=== PATIENT | female | born 1990 | race American Indian/Alaskan Native ===

== ENCOUNTER 2021-01-23 16:30 | Inpatient (IN) | payer OTHER ==
[2021-01-23] MEDS: Lactated Ringers 1,000 ML IV SCH ×3 (17:07→19:20)
[2021-01-23] MEDS ORDERED: Dexamethasone 4 MG/ML SDV IV ONE (17:45)
[2021-01-23] MEDS ORDERED: Acetaminophen 325 MG Tab PO PRN (17:45)
[2021-01-23] MEDS ORDERED: Tranexamic Acid 1,000 MG in Sodium Chloride 0.9% 100 ML IV PRN (17:45)
[2021-01-23] MEDS ORDERED: Morphine PF 1 MG/ML Amp ITHECAL ONE (17:45)
[2021-01-23] MEDS ORDERED: Acetaminophen/oxyCODONE 325-5 MG Tab PO PRN ×2 (17:45)
[2021-01-23] MEDS ORDERED: Docusate Sodium 100 MG Cap PO PRN (17:45)
[2021-01-23] MEDS ORDERED: Ondansetron 4 MG/2 ML SDV IV ONE (17:45)
[2021-01-23] MEDS ORDERED: Carboprost Tromethamine 250 MCG/1 ML Amp IM PRN (17:45)
[2021-01-23] MEDS ORDERED: Misoprostol 400 MCG (4 X 100 MCG TAB) RECTAL PRN (17:45)
[2021-01-23] MEDS ORDERED: Ondansetron 4 MG/2 ML SDV IVPUSH PRN (17:45)
[2021-01-23] MEDS ORDERED: Naloxone 2 MG/2 ML Syringe IVPUSH PRN (17:45)
[2021-01-23] MEDS ORDERED: ePHEDrine 50 MG/ML SDV IVPUSH PRN (17:45)
[2021-01-23] MEDS ORDERED: Lactated Ringers 1,000 ML IV ONE (17:45)
[2021-01-23] MEDS ORDERED: Ibuprofen 800 MG Tab PO PRN (17:45)
[2021-01-23] MEDS ORDERED: Methylergonovine 0.2 MG/1 ML Amp IM PRN (17:45)
[2021-01-23] MEDS ORDERED: Ketorolac 30 MG/ML SDV IVPUSH ONE (17:45)
[2021-01-23] MEDS ORDERED: Citric Acid/Sodium Citrate Solution 30 ML Cup PO ONE (17:51)
[2021-01-23] MEDS ORDERED: Oxytocin/Normal Saline 60 UNIT/1,000 ML BAG ONE (17:59)
[2021-01-23] MEDS ORDERED: Oxytocin/Normal Saline 30 UNITS/500 ML BAG IV SCH (18:00)
[2021-01-23] MEDS: ceFAZolin 2 GM in Premix Bag 1 BAG IV ONE (18:27)
--- NOTE | 2021-01-23 19:31 | HP ---
PATIENT IDENTIFICATION: Kaci Martinez is a 30-year-old, G3, P1-0-1-1, intrauterine at 38-6/7 weeks, confirmed with 21-2/7-week ultrasound with previous x1, requests repeat low transverse , presents with vaginal leaking and contractions. HISTORY OF PRESENT ILLNESS: The patient was scheduled to be delivered with repeat low transverse in [facility] tomorrow and is from the [facility], and when on her way there today at [facility] she was sitting in a vehicle and noticed a significant amount of vaginal leaking, described as clear in nature, continued to persist, nothing seems to make it better, at times it made her worse, and then started having contractions severe enough that she has been breathing through them currently. To put this in context, previous records were called for and reviewed. I do have 1 Maternal- Medicine record, does reveal that there was a pyelectasis on ultrasound and we are waiting for the records. She also had a history of intrauterine demise at approximately 16 weeks in September 2017 and had a history of abruption with her first and therefore is not a transfer candidate due to the above as well as having labor with spontaneous rupture of membranes. Records called for and reviewed as below and supplemented by patient's history. ALLERGIES: None. MEDICATIONS: vitamins. OBSTETRIC HISTORY: 1. 06/14/2014, delivered at 40 weeks with placental abruption delivering a male via primary low transverse . 2. September 2017, 16 weeks, had a demise. PAST MEDICAL HISTORY: Migraine and placental abruption. asthma with last use of albuterol over a year ago. PAST SURGICAL HISTORY: Notable for previous x1. Nasal sinus surgery procedure with nasal septum surgery. FAMILY HISTORY: Negative for any anesthesia, bleeding problems, or defects. No known problems with father of baby. Mother with asthma, diabetes type 2, hypertension. No known problems with brother or sister. SOCIAL HISTORY: The patient denies any alcohol, tobacco, or drug use. Presents with male partner. They are from the [facility] and lives in [place]. REVIEW OF SYSTEMS: Otherwise notable for as above. Denies any headaches, visual changes, or upper abdominal pain. OBJECTIVE: Vital Signs: Initial blood pressure 146/97, recheck 150/83; heart rate is between 66 and 80; temperature 99.1. Appearance: Female, appears stated age, acting appropriate. Nontoxic appearance. Breathing through contractions. Answering questions appropriately in between. Head: Atraumatic. EOMs intact. PERRLA. No scleral icterus. No sore throat. Mucous membranes are moist. Neck: No obvious tenderness. Lungs: Clear to auscultation bilaterally. No increased work of breathing. Heart: S1, S2. Regular rate and rhythm. Abdomen: Gravid. Dago's indeterminate. Nontender, nondistended. Bowel sounds positive. No organomegaly, pulsatile masses, or obvious hernias. No rebound, rigidity, or guarding with Pfannenstiel scar noted. Genitourinary: Normal external female genitalia. exam deferred as we have not received complete records from [place]. Extremities: No peripheral edema. Deep tendon reflexes 4/4 bilaterally and symmetric in lower extremities. Psychiatric: Mood and affect congruent. Judgment and insight intact. Skin: Without any cyanosis, clubbing, or jaundice. INVESTIGATIONS: White cell count 10.7, hemoglobin 11.2, platelets 163. Urinalysis notable for greater than 300 protein with a protein-creatinine ratio of 5573. Urine drug screen is negative and rapid COVID is pending. heart tones at current time of dictation in the 120s to 140s to 150s range, felt to be reactive and reassuring. Tocometer when reading contractions every couple of minutes, every 2 to 3 minutes on average. Just received an ultrasound report from [place] [facility] revealing at that time confirming EDC of 01/31/2021 with urinary tract dilation of left kidney measuring 6.0 mm with a UTD A1 diagnosis with anatomy appearing normal with limited visualization in the aortic arch with no sonographic markers for aneuploidy with normal amniotic fluid volume and normal anterior placenta. Pending are some labs to be obtained from [place]. Type and screen will be done here. The patient denies noting any infections during this or treatments for anything or further medications. ASSESSMENT: 1. Intrauterine at 38-6/7 weeks, confirmed with 21-2/7-week ultrasound. 2. Previous section x1. Requests repeat low transverse section. 3. Spontaneous rupture of membranes with labor and contractions. 4. History of abruption with her first section. 5. History of intrauterine demise at approximately 16 weeks in September 2017. 6. pyelectasis on ultrasound at 21-2/7 weeks measuring 6 mm with UTD A1, awaiting final and further records from [facility]. 7. Not a transfer candidate due to her history as above. 8. G3, P1-0-1-1. 9. Preeclampsia without severe features. PLAN: I did discuss with the patient and her male partner, Negrito. As she is not a transfer candidate, she is breathing through contractions, history of abruption and history of previous , requests repeat low transverse C- section. We will proceed to the OR as soon as crew is ready and available. I did discuss with them the risks, benefits, alternatives, and complications of C- section including but not limited to, infection; bleeding; damage to organs such as bowel, bladder, tubes, uterus, ovaries, and sometimes fetus; rarely needing a blood transfusion or further surgery, and rare maternal or . She understands, agrees, and wishes to proceed. Verbal and written consent were obtained. Questions were answered. In addition, I did discuss with the patient and her male partner the potential need to transfer baby to a higher level of care if need be, and we are awaiting current records. My overall suspicion is that its renal sinus separation/pyelectasis that is noted and will need a renal ultrasound or bladder ultrasound which certainly can be done here, and we will follow baby closely thereafter. The patient denies any headaches, visual changes, or upper abdominal pain. She has quite a bit of protein in her urine and elevated blood pressures. At this point in time, her pressure has come down to 125/73, but given her lab findings, we will proceed to the OR as soon as crew is ready and available. Her rapid COVID just returned negative. We are still waiting on her BUN, creatinine, uric acid, AST, and ALT at current time of dictation. I do not suspect this will change our current management at this point in time, and we will proceed to the OR as soon as crew is ready and available and update as records and the labs return. [facility] /[id number] [facility]
--- NOTE | 2021-01-23 19:45 | OBOUT ---
DATE: 01/23/2021 TIME: 1720 to 1733. REASON FOR NST: 1. Intrauterine at 38-6/7 weeks, confirmed with 21-2/7-week ultrasound. 2. Previous x1. Requests repeat low transverse . 3. Spontaneous rupture of membranes with labor. 4. pyelectasis on ultrasound, awaiting further records. 5. Not a transfer candidate due to the above. 6. History of intrauterine demise at 16 weeks in September 2017. 7. History of abruption with first . 8. G3, P1-0-0-1. NST INTERPRETATION: During this time period, heart tone baseline is approximately 125 and at least two 15 x 15 beat per minute accelerations making this strip reactive and reassuring. Tocometer reveals potential of 5 to 6 contractions during this time. ASSESSMENT: 1. Nonstress test, reactive and reassuring. 2. Tocometer with contractions. PLAN: At current time of dictation working on getting records from [place]. We do have 1 Maternal- Medicine visit with note of the patient needing a repeat low transverse and requesting 1 today. She has had spontaneous rupture of membranes with active labor. She had some elevated blood pressures, and PIH panels have been drawn and suspected pyelectasis on ultrasound. We will get records released and find out further information for status, but at this point in time with her bj, history of abruption, history of , I do not suspect she is a transfer candidate, and did review with her this and she understands, agrees, and wishes to proceed with repeat low transverse here. I did discuss with her and her male partner risks, benefits, alternatives, and complications of this including, but not limited to infection; bleeding; damage to organs such as bowel, bladder, tubes, uterus, sometimes fetus; rarely needing a blood transfusion or further surgery, and rare maternal or . She understands, agrees, and wishes to proceed. Verbal and written consents were obtained. Questions were answered. [facility] /[id number]
[2021-01-23] MEDS: diphenhydrAMINE 50 MG/ML SDV IVPUSH PRN (20:10)
[2021-01-24] MEDS: Simethicone 80 MG Tab.Chew PO SCH ×5 (00:01→20:59)
[2021-01-24] MEDS: diphenhydrAMINE 50 MG/ML SDV IVPUSH PRN (01:32)
[2021-01-24] MEDS: Ketorolac 30 MG/ML SDV IVPUSH SCH ×5 (01:33→13:44)
[2021-01-24] MEDS: ceFAZolin 2 GM in Premix Bag 1 BAG IV ONE (02:14)
[2021-01-24] MEDS: Prenatal Multivitamin with Calcium/Folic Acid/Iron Tab PO SCH (08:03)
[2021-01-24] MEDS: Ferrous Sulfate 325 MG Tab PO SCH (08:03)
--- NOTE | 2021-01-24 08:55 | OR ---
DATE: 01/23/2021 PREOPERATIVE DIAGNOSES: 1. Intrauterine at 38-6/7 weeks confirmed with 21-2/7-week ultrasound. 2. Previous section x1. Requests repeat low transverse section. 3. Spontaneous rupture of membranes with labor upon admission. 4. History of abruption with 1st section. 5. History of intrauterine demise, approximately 16 weeks in 09/2017 with 2nd . 6. Not a transfer candidate due to the above. 7. pyelectasis on ultrasound, waiting further records from [facility] for evaluation and management of fetus of baby. 8. Preeclampsia, suspected. 9. G3, P1-0-1-1. PROCEDURE PERFORMED: Nonstress test followed by repeat low transverse section. PHOTOGRAPHIC LITHOGRAPHER: Tete Ulloa MD ANESTHESIA: Spinal. ESTIMATED BLOOD LOSS: 400 mL. IV FLUIDS: Pitocin 250 mL and lactated Ringer's 1400 mL. URINE OUTPUT: 400 mL and clear yellow. START: 1845. UTERINE INCISION: 1847. DELIVERY: 1847. STOP: 1949. FINDINGS: Male. scores 9 and 9. Weight pending. DESCRIPTION OF PROCEDURE IN DETAIL: After proper consent obtained, the patient was brought to the operating room, where spinal anesthetic was administered. Juarez was placed in the preop under sterile conditions. Abdomen was prepped and draped in normal sterile fashion. The patient was placed in supine position with left lateral tilt. A skin incision was made over lower abdomen in transverse Pfannenstiel-type fashion over previous scar. This was carried down the fascia and scored in the midline. Subcutaneous tissue raked by Brink retraction. Fascial incision was extended in a transverse fashion using curved Mandel's. Maricruz clamps x2 used to grasp superior aspect of the fascia. Rectus muscles were dissected from the fascia using sharp and blunt technique. In a similar fashion, Maricruz clamps x2 to grasp the inferior portion of the incision and rectus and pyramidalis muscles were dissected from the fascia using sharp and blunt technique. Rectus muscles were in the midline with blunt technique. Abdominal cavity was entered with blunt technique. The incision was extended superiorly and inferiorly with blunt technique. Macho O large retractor was then introduced and used. Vesicouterine peritoneum was identified, incised in transverse fashion with Metzenbaum scissors. Bladder flap was made digitally. Curvilinear incision made on lower uterine segment at 1848 hours. Uterus was entered sharply. Mild meconium-stained fluid returned. Uterine incision was then extended in transverse fashion using blunt technique. vertex was then brought through the incision followed by rest of the infant without difficulty. Mouth and nares suctioned. Cord was doubly clamped and cut. was brought to team. Then, approximately 10 mL of cord blood was obtained for labs. Placenta then delivered with gentle cord traction and fundal massage. Uterine cavity was then cleared of all blood clots and debris with lap sponge. Sorensen clamps were used to grasp the uterine incision and this was closed in a running locked fashion and tied at lateral margins. Bleeding across the uterine incision was noted with minimal oozing. Second imbricating layer was applied with 1-0 Vicryl and tied at lateral margins, and hemostasis was reassured. First inspection of the uterine incision revealed hemostasis. Macho O retractor was then removed, and paracolic gutters were then cleared of all blood clots and debris with lap sponge. Anterior cul-de-sac was irrigated copiously. All blood clots removed. Second and final inspection of the uterine incision and anterior cul-de-sac revealed hemostasis. Rectus muscles were then reapproximated in the midline with [id number] stitch using 1-0 Vicryl. Subfascial tissues were found to be hemostatic and fascia was closed in a running fashion and tied at lateral margins with 0 looped PDS. Subcutaneous tissue irrigated copiously. Hemostasis reassured. Skin was reapproximated using a Evan needle with a subcuticular stitch with 3-0 Monocryl and tied at lateral margins. Uterine fundus was firm, massaged at the conclusion of the case, -2 below umbilicus. No immediate complications were noted. Sponge, lap, and needle counts were correct. The patient received 2 g of Ancef preoperatively, Pitocin per protocol, and received Toradol at the conclusion of the case for pain control. Mother and infant are currently stable at the time of dictation. [facility] /[id number]
--- NOTE | 2021-01-24 09:54 | PN ---
DATE: 01/24/2021 Postop day #1. SUBJECTIVE: The patient is tolerating p.o., is ambulating. Juarez is in place. Passing flatus. Pain under control. OBJECTIVE: Vital Signs: Temperature 98.4, heart rate 58, blood pressure 124/65, respiratory rate 18. Urine output has been adequate. Last night, blood pressures, did have 154/77, 155/77, but the last 2 have been within normal range. Lungs: Clear to auscultation bilaterally. Heart: S1, S2. Regular rate and rhythm. Abdomen: Firm uterus. -1 below umbilicus. Dressing reveals minimal shadowing, just barely seen in the midline, approximately 3 to 4 cm in greatest diameter. SCDs and PARRIS hose are on. Juarez is in place. LABORATORY DATA: White cell count 15, hemoglobin 10.2, platelets 141. Other HELLP labs are negative. Repeat urinalysis revealed 100 protein with protein creatinine ratio of 787 which has markedly decreased from 7492.5 done on cath specimen last night. ASSESSMENT AND PLAN: 1. Postop day #1, status post repeat low transverse . 2. Preeclampsia without severe features. Blood pressures normalizing, proteinuria is improving, platelets have dropped minimally. We will repeat CBC tomorrow. PLAN: We will continue to follow clinically and closely. Possible discharge tomorrow was discussed with the patient and it sounds like she wants to leave tomorrow if possible. I did discuss with her following up with her baby. She wishes to follow up locally in the [place] area. I did discuss with her the need for ultrasound and followup of her baby, and importance of followup and she understands and agrees. [facility] /[id number]
[2021-01-24] MEDS ORDERED: Oxytocin/Normal Saline 30 UNIT/500 ML BAG IV ONE (14:15)
[2021-01-24] MEDS: Ibuprofen 800 MG Tab PO PRN (20:59)
[2021-01-25] MEDS: Ibuprofen 800 MG Tab PO PRN (05:48)
[2021-01-25] MEDS: Prenatal Multivitamin with Calcium/Folic Acid/Iron Tab PO SCH (09:08)
[2021-01-25] MEDS: Ferrous Sulfate 325 MG Tab PO SCH (09:08)
[2021-01-25] MEDS: Simethicone 80 MG Tab.Chew PO SCH (09:14)
--- NOTE | 2021-01-26 10:58 | DISCH ---
ADMITTING DIAGNOSES: 1. Intrauterine at 38-6/7 weeks confirmed with a 21-2/7-week ultrasound. 2. Previous x1. Requested repeat low-transverse . 3. Spontaneous rupture of membranes with labor upon admission. 4. History of abruption with first section. 5. History of intrauterine demise, approximately 16 weeks in September 2017 with second . 6. Not a transfer candidate due to above. 7. pyelectasis on ultrasound, suspected polycystic kidney disease. 8. Preeclampsia without severe features. 9. G3, P1-0-1-1. DISCHARGE DIAGNOSES: 1. Intrauterine at 38-6/7 weeks confirmed with a 21-2/7-week ultrasound. 2. Previous section x1. Requests repeat low-transverse section. 3. Spontaneous rupture of membranes with labor upon admission. 4. History of abruption with first section. 5. History of intrauterine demise, approximately 16 weeks in September 2017 with second . 6. Was not a transfer candidate due to above. 7. pyelectasis on ultrasound, polycystic kidney disease suspected. No immediate concerns, baby is voiding well. 8. Preeclampsia without severe features. 9. G3, P2-0-1-2. 10.Preliminary group B streptococcus results negative. 11. thrombocytopenia, platelets are stable. PROCEDURES PERFORMED: Nonstress test followed by repeat low-transverse section. HISTORY OF PRESENT ILLNESS: Please see H and P. SUMMARY OF HOSPITAL COURSE: The patient was admitted on the above date with the above diagnosis, found to be in active labor with spontaneous rupture of membranes. The patient was not felt to be a transfer candidate due to her active labor, history of abruption, history of intrauterine demise, and history of previous section. The patient agreed to proceed with repeat low transverse section in [facility]. At this time, we were still receiving outside hospital records regarding her care from [place]. The patient underwent a repeat low transverse section under spinal anesthesia, EBL 400 mL. Male baby score of 9 and 9, weighing 3380 g (7 lb 7oz). Postop day #1, please see progress note. Postop day #2 day of discharge. Patient is ambulating, tolerating p.o., urinating, passing flatus, and requesting discharge. Denies headache, weakness, abdominal pain, or increased leg swelling. Pain is being managed by tylenol and motrin. Baby will be exclusively bottle fed. PHYSICAL EXAMINATION: Vital signs: T 97.7, P 96, BP 127/63, RR 14 Lungs: Clear to auscultation bilaterally. Heart: S1, S2. Regular rate and rhythm. Abdomen: Firm uterus, -2 below umbilicus. Steri strips spanning incision site are dry and intact. No erythema or swelling at suture site. Extremities: Trace peripheral edema bilaterally. No calf pain. CONDITION ON DISCHARGE COMPARED TO CONDITION ON ADMISSION: Improved DISCHARGE INSTRUCTIONS: 1. Diet: As tolerated 2. Activity: No lifting more than 20 pounds. No sit-ups or straining. Pelvic rest for the next 6 weeks with immediate return to fertility discussed with patient. 3. Reason to return to clinic or go to the emergency room discussed with the patient in detail including, but not limited to, temperature greater than 100.4, foul- smelling discharge, increased vaginal bleeding, or increasing pain, drainage, or redness around the incision. DISCHARGE MEDICATIONS: [id number] Tylenol or ibuprofen for pain Seen with medical student. Patient was personally seen and examined with the medical student practitioner student, Malaika Sutton. I reviewed the noted scribed on my behalf and necessary changes have been made to reflect my opinion on the history, exam, assessment, and plan ROHAN Enamorado [facility] /[id number] MTDD
== END 2021-01-25 10:00 | disposition home or self-care (01) | DRG 540 ==
LOC: DL.OBCHECK 16:30 → EDBD 16:30 → DL.OB 17:56 → OBSVTOIN 18:48 → DL.MS 01-25 00:16 → DL.OB 01-25 00:21
PROVIDERS: ADMIT Family Medicine; ATTEND Family Medicine
PROC: 10D00Z1 Extraction of Products of Conception, Low, Open Approach (ICD-10-PCS; principal; 2021-01-23)
DX: O14.04 Mild to moderate pre-eclampsia, complicating childbirth (principal); Z3A.38 38 weeks gestation of pregnancy; Z37.0 Single live birth; O72.3 Postpartum coagulation defects; D69.6 Thrombocytopenia, unspecified; O34.211 Maternal care for low transverse scar from previous cesarean delivery; Z20.822 Contact with and (suspected) exposure to COVID-19; Z20.828 Contact with and (suspected) exposure to other viral communicable diseases
CPT/HCPCS: 01961; 36415; 80305-QW; 81003; 82565; 82570; 83615; 84156; 84450; 84460; 84520; 84550; 85027; 86850; 86900; 86901; 87081; A9270-GY; J0690; J1100; J1200; J1885; J2274; J2405; J2590; J7120; U0002